=== PATIENT | female | born 1935 | race Caucasian/White ===

== ENCOUNTER 2016-10-14 22:43 | Inpatient (IN) | payer OTHER ==
[~2016-10-14] VITALS: Ht 142.2 cm; Wt 113.9 kg
[~2016-10-14 22:43] MED LIST: ADVAIR HFA120 INHALA IH; ALDACTONE50 MG PO; ASPIR 8181 M1 PO; CELEXA20 MG PO; CENTRUM CARD1 TABLET PO; CENTRUM SILVER1 EAC3 PO; CEPHALEXIN500 MG PO; CITALOPRAM HBR20 MG PO; CLARITIN,ALAVAR10 MG PO; CLOPIDOGREL75 MG PO; DAILY VALUE1 EACH PO; DIAZEPAM5 MG PO; GABAPENTIN100 MG PO; HYDROCORTISON28.4 GM TP; K-DUR20 MEQ PO; KEFLEX500 MG PO; KLOR-CON M2020 MEQ PO; LASIX20 MG PO; LASIX40 MG PO; LINZESS145 MCG PO; LO-DOSE ASPIRIN81 M1 PO; LOPRESSOR25 MG PO; LOPRESSOR50 MG PO; LYRICA100 MG PO; LYRICA75 MG PO; MELOXICAM7.5 MG PO; METOLAZONE2.5 MG PO; METOPROLOL TART50 MG PO; MOBIC7.5 MG PO; NITROSTAT0.4 MG SL; OMEPRAZOLE20 MG PO; PERCOCET 5/31 TABLET PO; PLAVIX75 MG PO; PRAVACHOL80 MG PO; PRAVASTATIN SOD80 MG PO; PRILOSEC20 MG PO; PROPRANOLOL HCL60 MG PO; TYLENOL EXTRA500 MG PO; VENTOLIN HFA18 GM IH; VESICARE10 MG PO; ZAROXOLYN2.5 MG PO; [UNRECOGNIZED DRUG - OTHER] PO
[2016-10-14 23:37] LABS: EOSINOPHIL (%) 2.7 % (0-5); EOSINOPHIL COUNT 0.2 K/uL (0-0.3); HEMATOCRIT 40.3 % (36.0-46.0); IMMATURE GRANULOCYTE (%) 0.3 % (0.0-0.7); IMMATURE GRANULOCYTE COUNT 0.2 K/uL; LYMPHOCYTE COUNT 1.8 K/uL (1.0-2.8); MCHC 32.3 G/DL (30.0-36.0); MCV 92.9 FL (83-99); MEAN PLAT.VOLUME 11.5 uM^3 (9.5-12.4); MONOCYTE (%) 10.1 % (3-12); MONOCYTE COUNT 0.7 K/uL (0-0.8); NEUTROPHIL COUNT 4.4 K/uL (1.8-6.4); PLATELET COUNT 154 K/uL (156-360); RBC DIS.WIDTH-CV 12.8 % (11.8-14.6); RBC DIS.WIDTH-SD 41.9 % (39-53); RED BLOOD COUNT 4.34 M/uL (3.80-5.20); WHITE BLOOD COUNT 7.1 K/uL (4.1-10.2)
[2016-10-14 23:46] LABS: CHLORIDE 103 mEq/L (99-109); POTASSIUM 4.3 mEq/L (3.7-5.4); SODIUM 143 mEq/L (136-147)
[2016-10-14 23:47] LABS: GLUCOSE 121 mg/dL (70-99)
[2016-10-14 23:49] LABS: ANION GAP 11 MEQ/L (2-14); INTER. NORMALIZED RATIO 1.1; PROTHROMBIN TIME 10.7 (9.2-11.2); PTT 23.7 (25-32)
[2016-10-14 23:51] LABS: GFR ESTIMATE (CALCULATED) 46 mL/min/
[2016-10-14 23:52] LABS: UREA NITROGEN (BUN) 23 mg/dL (9-23)
[2016-10-14 23:58] LABS: TROP-I INTERPRETATION NEGATIVE; TROPONIN-I < 0.01 ng/mL (0.0-0.30)
[2016-10-15 00:26] LABS: ADD MIUA? YES; BILIRUBIN NEGATIVE; BLOOD NEGATIVE; COLOR YELLOW ((YELLOW)); GLUCOSE (STRIP) NEGATIVE; KETONES NEGATIVE; LEUKOCYTES MODERATE; NITRITE NEGATIVE; PROTEIN (STRIP) NEGATIVE; SPECIFIC GRAVITY 1.026 (1.000-1.030)
[2016-10-15 00:40] LABS: BACTERIA RARE; CASTS NONE SEEN /LPF; CRYSTALS NONE SEEN; EPITHELIAL CELLS 2+; MUCUS NONE SEEN; RED BLOOD CELLS 0-5 /HPF (0-5); UCUL ADDED? NO; WHITE BLOOD CELLS 30-40 /HPF (0-5)
[2016-10-15] MEDS ORDERED: LYRICA75 MG PO (00:58)
[2016-10-15] MEDS ORDERED: CALCITRIOL0.25 MCG PO (01:00)
[2016-10-15] MEDS ORDERED: CEPHALEXIN500 MG PO (01:00)
[2016-10-15 02:30] LABS: HDL CHOLESTEROL 34 MG/DL (Desirable>=50); LDL CHOLESTEROL 91 mg/dL (Desirable<100); NON-HDL CHOLESTEROL 116 mg/dL (Desirable<160); TOTAL CHOLESTEROL 150 mg/dL (Desirable<200); TRIGLYCERIDES 125 MG/DL (Normal: <150)
[2016-10-15 06:00] VITALS: BP 144/65
[2016-10-15 08:07] VITALS: BP 138/63
[2016-10-15 09:13] LABS: Estimated Average Glucose 111 mg/dL (70-123); HEMOGLOBIN A1c (GLYCOHEMOGLOB) 5.5 % HGB (Below 5.7)
[2016-10-15 11:29] VITALS: BP 128/62
[2016-10-15 16:27] VITALS: BP 122/60
[2016-10-15 19:53] VITALS: BP 137/49
[2016-10-15 23:35] VITALS: BP 144/67
[2016-10-16 03:28] VITALS: BP 131/60
[2016-10-16 07:56] VITALS: BP 123/60
[2016-10-16 17:39] VITALS: BP 110/56
[2016-10-17 07:00] VITALS: BP 115/65
[2016-10-17 15:33] VITALS: BP 135/63
[2016-10-18 00:15] VITALS: BP 135/64
[2016-10-18 07:04] LABS: EOSINOPHIL (%) 3.4 % (0-5); EOSINOPHIL COUNT 0.2 K/uL (0-0.3); LYMPHOCYTE COUNT 1.6 K/uL (1.0-2.8); MCH 30.7 PG (29.0-34.0); MCHC 32.3 G/DL (30.0-36.0); MCV 94.9 FL (83-99); MEAN PLAT.VOLUME 12.2 uM^3 (9.5-12.4); MONOCYTE COUNT 0.8 K/uL (0-0.8); NEUTROPHIL (%) 55.2 % (45-76); NEUTROPHIL COUNT 3.2 K/uL (1.8-6.4); PLATELET COUNT 139 K/uL (156-360); RBC DIS.WIDTH-CV 12.7 % (11.8-14.6); RBC DIS.WIDTH-SD 43.8 % (39-53); RED BLOOD COUNT 4.11 M/uL (3.80-5.20); WHITE BLOOD COUNT 5.8 K/uL (4.1-10.2)
[2016-10-18 07:54] VITALS: BP 163/70
[2016-10-18 07:54] LABS: ANION GAP 7 MEQ/L (2-14); CHLORIDE 100 MEQ/L (99-109); GFR ESTIMATE (CALCULATED) 51 mL/min/; GLUCOSE 106 mg/dL (70-99); POTASSIUM 4.2 MEQ/L (3.7-5.4); SAMPLE HEMOLYSIS CHECK 0; SAMPLE ICTERIC CHECK 0; SAMPLE LIPEMIA CHECK 0; SODIUM 142 MEQ/L (136-147); UREA NITROGEN (BUN) 15 mg/dL (9-23)
[2016-10-18 12:36] VITALS: BP 128/62
[2016-10-18 16:13] VITALS: BP 135/63
[2016-10-19 00:08] VITALS: BP 115/54
[2016-10-19 08:11] VITALS: BP 117/68
[2016-10-19 15:45] VITALS: BP 132/60
[2016-10-20 00:02] VITALS: BP 141/79
[2016-10-20 07:58] VITALS: BP 151/64
[2016-10-20 16:16] VITALS: BP 129/64
[2016-10-20 23:41] VITALS: BP 130/68
[2016-10-21 07:36] VITALS: BP 164/70
[2016-10-21 16:47] VITALS: BP 132/75
[2016-10-22 00:40] VITALS: BP 150/67
[2016-10-22 07:44] VITALS: BP 135/64
[2016-10-22 23:49] VITALS: BP 140/72
[2016-10-23 08:44] VITALS: BP 132/75
[2016-10-23 08:45] LABS: ANION GAP 8 MEQ/L (2-14); CHLORIDE 100 MEQ/L (99-109); GFR ESTIMATE (CALCULATED) 57 mL/min/; GLUCOSE 113 mg/dL (70-99); POTASSIUM 4.4 MEQ/L (3.7-5.4); SAMPLE HEMOLYSIS CHECK 0; SAMPLE ICTERIC CHECK 0; SAMPLE LIPEMIA CHECK 0; SODIUM 142 MEQ/L (136-147); UREA NITROGEN (BUN) 11 mg/dL (9-23)
[2016-10-23 17:46] VITALS: BP 114/54
[2016-10-23 21:35] VITALS: BP 135/60
[2016-10-23 23:52] VITALS: BP 164/90
[2016-10-24 01:30] VITALS: BP 129/59
[2016-10-24 08:07] VITALS: BP 145/63
[2016-10-24 15:38] VITALS: BP 120/58
[2016-10-24 21:00] VITALS: BP 124/58
[2016-10-24 23:58] VITALS: BP 142/61
[2016-10-25 08:08] VITALS: BP 119/58
[2016-10-25] MEDS ORDERED: SEROQUEL12.5 MG PO (13:21)
[2016-10-25] MEDS ORDERED: LOPRESSOR25 MG PO (13:21)
[2016-10-25] MEDS ORDERED: TYLENOL EXTRA500 MG PO (13:23)
== END 2016-10-25 15:10 | DRG 536 ==
LOC: EME → EDBD 22:43 → EME 22:43 → EDOF 10-15 03:40 → 3EAST 10-15 03:40
PROVIDERS: Emergency Medicine; Internal Medicine
DX: S72.144A Nondisplaced intertrochanteric fracture of right femur, initial encounter for closed fracture (principal); Z68.43 Body mass index [BMI] 50.0-59.9, adult; N39.0 Urinary tract infection, site not specified; J98.11 Atelectasis; F22 Delusional disorders; R29.6 Repeated falls; E78.5 Hyperlipidemia, unspecified; F32.9 Major depressive disorder, single episode, unspecified; G62.9 Polyneuropathy, unspecified; I25.10 Atherosclerotic heart disease of native coronary artery without angina pectoris; I25.2 Old myocardial infarction; E11.9 Type 2 diabetes mellitus without complications; E66.01 Morbid (severe) obesity due to excess calories; I10 Essential (primary) hypertension; R00.1 Bradycardia, unspecified; Z98.61 Coronary angioplasty status; M25.511 Pain in right shoulder; W19.XXXA Unspecified fall, initial encounter; Z87.891 Personal history of nicotine dependence; Y99.9 Unspecified external cause status; Y92.9 Unspecified place or not applicable
CPT/HCPCS: 70450; 71020; 71275; 72125; 72192; 73030; 73502; 73564; 80048; 80048 91; 80061; 81003; 83036; 84484; 85025; 85610; 85730; 93005; 94640; 94799; 99281; 99283; J1170